=== PATIENT | male | born 1935 | race Caucasian/White ===

== ENCOUNTER 2017-08-28 16:41 | Inpatient (IN) | payer MEDICARE, OTHER ==
[~2017-08-28] VITALS: Ht 203.2 cm; Wt 150.0 kg
[2017-08-28 18:59] LABS: Hematocrit 36.8 % (41.0-53.0); Hemoglobin 12.1 g/dL (13.5-17.5); Mean Corpuscular Hemoglobin 28.8 pg (28.0-32.0); Mean Corpuscular Hgb Conc. 32.9 g/dL (32.0-36.0); Mean Corpuscular Volume 87.6 fL (80.0-100.0); Platelet Count (auto) 37 10^3/uL (140-450); Red Cell Distribution Width 16.4 % (11.8-14.3); White Blood Cell 27.1 10^3/uL (4.4-10.8)
[2017-08-28 19:09] LABS: Alanine Aminotransferase 77 U/L (16-61); Albumin 2.8 g/dL (3.4-5.0); Alkaline Phosphatase 142 U/L (45-117); Anion Gap 15 (5-15); Aspartate Aminotransferase 55 U/L (15-37); BUN/Creatinine Ratio 20.1; Bilirubin, Total 0.6 mg/dL (0.2-1.0); Blood Alcohol < 3.0 mg/dL (0-5); Blood Urea Nitrogen 28 mg/dL (7-18); Calcium 8.3 mg/dL (8.5-10.1); Carbon Dioxide 23 mmol/L (21-32); Chloride 97 mmol/L (98-107); GFR African American 63 mL/min; GFR Non-African American 52 mL/min; Glucose 196 mg/dL (74-106); Potassium 4.4 mmol/L (3.5-5.1); Sodium 135 mmol/L (136-145); Total Protein 7.1 g/dL (6.4-8.2)
[2017-08-28 19:22] LABS: Band Neutrophils % (manual) 15; Basophils % (manual) 0 (0.0-2.0); Blast Cells 0; Eosinophils % (manual) 0 (0-7); Lymphocytes % (manual) 3 (10.0-50.0); Metamyelocytes % 0; Monocytes % (manual) 2 (0-12); Myelocytes % 0; Promyelocytes % 0; Reactive Lymphocytes 0
[2017-08-28] MEDS ORDERED: METOPROLOL TARTRATE 1MG/1ML-5ML VIAL IV ONE ×2 (19:23→19:30)
[2017-08-28] MEDS ORDERED: cefTRIAXone 1GM/10ml IVPUSH 10 ML IV ONE (19:45)
[2017-08-28] MEDS ORDERED: metroNIDAZOLE 500MG/100ML 100 ML IV ONE (19:45)
[2017-08-28] MEDS ORDERED: ETOMIDATE (2MG/ML) 20ML VIAL IV ONE ×2 (19:45→22:30)
[2017-08-28] MEDS ORDERED: SUCCINYLCHOLINE CHLORIDE 20 MG/ML 10ML VIAL IV ONE (19:45)
[2017-08-28 20:45] VITALS: BP 171/121
[2017-08-28] MEDS: MIDAZOLAM DRIP 50 mg/50mL 50 ML IV SCH (20:45)
[2017-08-28 21:08] LABS: Lactic Acid w/Reflex 4.1 mmol/L (0.4-2.0)
[2017-08-28] MEDS ORDERED: PROPOFOL 100 ML IV ONE (21:15)
[2017-08-28] MEDS: PROPOFOL 100 ML IV SCH (21:15)
[2017-08-28] MEDS ORDERED: AMIODARONE HCL 150 MG in D5W 5% 100 ML IV ONE (22:00)
[2017-08-28] MEDS ORDERED: SODIUM CHLORIDE 0.9% 1,000 ML IV ONE (22:00)
[2017-08-28 22:33] VITALS: BP 87/39
[2017-08-28] MEDS: AMIODARONE HCL 900 MG in DEXTROSE 500 ML IV SCH (22:36)
[2017-08-28] MEDS ORDERED: VANCOMYCIN 1GM/250ML 250 ML IV ONE (22:45)
[2017-08-28] MEDS ORDERED: MORPHINE SULFATE 4 MG/ML SYR/VIAL IV PRN (22:45)
[2017-08-28] MEDS ORDERED: DEXTROSE (50%) 50ML SYRG IV PRN (22:45)
[2017-08-28] MEDS ORDERED: NITROGLYCERIN 0.4 MG SL TAB SL PRN (22:45)
[2017-08-28] MEDS ORDERED: ONDANSETRON HCL 4 MG/2 ML VIAL IV PRN (22:45)
[2017-08-28 23:10] LABS: Urine Bacteria FEW /hpf (None Seen); Urine Blood Negative /uL (Negative); Urine Mucus FEW (None Seen); Urine Specific Gravity 1.016 (1.001-1.035); Urine WBC 2 /hpf (0 - 3)
[2017-08-28] MEDS ORDERED: ENOXAPARIN SOD 120 MG/0.8 ML SYRINGE SC ONE (23:15)
[2017-08-29] VITALS (13 sets, daily range): BP systolic 60–127; BP diastolic 29–63
[2017-08-29] MEDS: NOREPINEPHRINE 8 MG/250ML KIT 250 ML IV SCH ×2 (00:23→23:46)
[2017-08-29] MEDS: ACCU-CHEK COMFORT CURVE STRIP VI SCH ×4 (00:46→18:20)
[2017-08-29] MEDS: InsuLIN REG 1unit/0.01ml Soln (100units/ml) SC SCH ×4 (00:52→18:29)
[2017-08-29] MEDS: SODIUM CHLORIDE 0.9% 1,000 ML IV SCH ×3 (00:53→23:47)
[2017-08-29] MEDS: PIPERACILLIN-TAZOB 3.375GM 100 ML IV SCH ×4 (01:22→18:51)
[2017-08-29] MEDS ORDERED: InsuLIN REG 1unit/0.01ml Soln (100units/ml) ONE (05:38)
[2017-08-29] MEDS: ACETAMINOPHEN 325 MG TAB PO PRN ×2 (05:55→20:19)
[2017-08-29 06:27] LABS: Albumin 2.2 g/dL (3.4-5.0); BUN/Creatinine Ratio 18.6; Calcium 7.9 mg/dL (8.5-10.1); Potassium 4.8 mmol/L (3.5-5.1)
[2017-08-29 06:30] LABS: Bilirubin, Total 1.1 mg/dL (0.2-1.0); Total Protein 6.2 g/dL (6.4-8.2)
[2017-08-29 07:36] LABS: Mean Corpuscular Hgb Conc. 31.7 g/dL (32.0-36.0); White Blood Cell 22.1 10^3/uL (4.4-10.8)
[2017-08-29 07:53] LABS: Hematocrit 35.5 % (41.0-53.0); Hemoglobin 11.2 g/dL (13.5-17.5); Mean Corpuscular Volume 91.4 fL (80.0-100.0); Platelet Count (auto) 173 10^3/uL (140-450); Red Blood Cells 3.88 10^6/uL (4.5-5.90); Red Cell Distribution Width 17.4 % (11.8-14.3)
[2017-08-29 08:05] LABS: Basophils % (manual) 0 (0.0-2.0); Blast Cells 0; Eosinophils % (manual) 0 (0-7); Metamyelocytes % 0; Myelocytes % 0; Promyelocytes % 0; Reactive Lymphocytes 0
[2017-08-29] MEDS: PHENYLEPHRINE INJ 20 MG in SODIUM CHL 0.9% 250 ML IV SCH ×2 (09:40→16:53)
[2017-08-29] MEDS ORDERED: VANCOMYCIN PER PHARMACY 0 MG IV SCH (10:00)
[2017-08-29] MEDS: ASPirin 81 mg TAB PO SCH (11:05)
[2017-08-29] MEDS: ENOXAPARIN SOD 40 MG/0.4 ML SYRINGE SC SCH (11:05)
[2017-08-29] MEDS: PANTOPRAZOLE 40 MG/10 ML VIAL IV SCH (11:05)
[2017-08-29 11:49] LABS: Band Neutrophils % (manual) 17; Lymphocytes % (manual) 3 (10.0-50.0); Monocytes % (manual) 6 (0-12)
[2017-08-29] MEDS: MIDAZOLAM DRIP 50 mg/50mL 50 ML IV SCH ×2 (19:41→23:00)
[2017-08-29] MEDS: PROPOFOL 100 ML IV SCH (22:25)
[2017-08-29] MEDS: AMIODARONE HCL 900 MG in DEXTROSE 500 ML IV SCH (23:00)
[2017-08-29] MEDS ORDERED: VANCOMYCIN 1GM/250ML 250 ML IV SCH (23:00)
[2017-08-29] MEDS ORDERED: AMIODARONE HCL 900 MG IV ONE (23:11)
[2017-08-30] VITALS (79 sets, daily range): BP systolic 84–166; BP diastolic 36–87
[2017-08-30] MEDS: ACCU-CHEK COMFORT CURVE STRIP VI SCH ×4 (00:10→17:53)
[2017-08-30] MEDS: InsuLIN REG 1unit/0.01ml Soln (100units/ml) SC SCH ×4 (00:10→17:53)
[2017-08-30] MEDS: PIPERACILLIN-TAZOB 3.375GM 100 ML IV SCH ×2 (00:10→05:46)
[2017-08-30] MEDS: PHENYLEPHRINE INJ 20 MG in SODIUM CHL 0.9% 250 ML IV SCH ×4 (03:30→17:53)
[2017-08-30] MEDS ORDERED: AMIODARONE HCL (50 MG/ ML) 3 ML VIAL IV ONE (03:34)
[2017-08-30] MEDS ORDERED: AMIODARONE HCL 75 MG in D5W 5% 100 ML IV ONE (03:45)
[2017-08-30] MEDS ORDERED: AMIODARONE HCL 900 MG in DEXTROSE 500 ML IV SCH (03:50)
[2017-08-30] MEDS: PROPOFOL 100 ML IV SCH (03:59)
[2017-08-30] MEDS: NOREPINEPHRINE 8 MG/250ML KIT 250 ML IV SCH ×3 (03:59→23:39)
[2017-08-30] MEDS: ACETAMINOPHEN 325 MG TAB PO PRN (04:00)
[2017-08-30 04:21] LABS: Basophils # (auto) 0 uL; Basophils % (auto) 0.2 % (0.0-2.0); Eosinophils # (auto) 0 uL; Eosinophils % (auto) 0.1 % (0.0-7.0); Hematocrit 34.4 % (41.0-53.0); Hemoglobin 11.1 g/dL (13.5-17.5); Lymphocytes # (auto) 0.4 uL; Lymphocytes % (auto) 2.1 % (10.0-50.0); Mean Corpuscular Hemoglobin 28.6 pg (28.0-32.0); Mean Corpuscular Hgb Conc. 32.1 g/dL (32.0-36.0); Monocytes % (auto) 5.8 % (0.0-12.0); Neutrophils # (auto) 16.7 uL; Neutrophils % (auto) 91.8 % (37.0-80.0); Platelet Count (auto) 160 10^3/uL (140-450); Red Blood Cells 3.87 10^6/uL (4.5-5.90); Red Cell Distribution Width 16.7 % (11.8-14.3); White Blood Cell 18.2 10^3/uL (4.4-10.8)
[2017-08-30 04:34] LABS: Albumin 1.7 g/dL (3.4-5.0); BUN/Creatinine Ratio 15.9; Calcium 7.1 mg/dL (8.5-10.1); Potassium 5.1 mmol/L (3.5-5.1)
[2017-08-30 04:36] LABS: Bilirubin, Total 2.1 mg/dL (0.2-1.0); Total Protein 5.6 g/dL (6.4-8.2)
[2017-08-30 05:00] LABS: INR 1.71 (0.9-1.15); Partial Thromboplastin Time 38.5 sec (22.64-33.71); Prothrombin Time 18.7 sec (9.37-12.3)
[2017-08-30] MEDS: PANTOPRAZOLE 40 MG/10 ML VIAL IV SCH (10:22)
[2017-08-30] MEDS: ASPirin 81 mg TAB PO SCH (10:22)
[2017-08-30] MEDS: ENOXAPARIN SOD 40 MG/0.4 ML SYRINGE SC SCH (10:23)
[2017-08-30] MEDS ORDERED: LACTULOSE 20Gm/30ML SOLN NG ONE (10:30)
[2017-08-30] MEDS: SODIUM CHLORIDE 0.9% 1,000 ML IV SCH ×2 (10:42→18:30)
[2017-08-30] MEDS ORDERED: CEFTRIAXONE SODIUM 2 GM in D5W 5% 50 ML IV ONE (12:15)
[2017-08-30] MEDS: MIDAZOLAM DRIP 50 mg/50mL 50 ML IV SCH ×2 (12:41→19:48)
[2017-08-31] VITALS (100 sets, daily range): BP systolic 92–170; BP diastolic 39–79
[2017-08-31] MEDS: AMIODARONE HCL 900 MG in DEXTROSE 500 ML IV SCH ×2 (01:27→16:28)
[2017-08-31] MEDS: PHENYLEPHRINE INJ 20 MG in SODIUM CHL 0.9% 250 ML IV SCH ×3 (02:13→18:53)
[2017-08-31] MEDS: SODIUM CHLORIDE 0.9% 1,000 ML IV SCH ×2 (02:30→08:30)
[2017-08-31 04:27] LABS: Basophils # (auto) 0 uL; Basophils % (auto) 0.2 % (0.0-2.0); Eosinophils # (auto) 0.2 uL; Eosinophils % (auto) 0.9 % (0.0-7.0); Hematocrit 34.6 % (41.0-53.0); Hemoglobin 11.2 g/dL (13.5-17.5); Lymphocytes # (auto) 0.8 uL; Lymphocytes % (auto) 3.6 % (10.0-50.0); Mean Corpuscular Hemoglobin 28.8 pg (28.0-32.0); Mean Corpuscular Hgb Conc. 32.4 g/dL (32.0-36.0); Monocytes # (auto) 1.6 uL; Monocytes % (auto) 7.5 % (0.0-12.0); Neutrophils # (auto) 18.8 uL; Neutrophils % (auto) 87.8 % (37.0-80.0); Platelet Count (auto) 176 10^3/uL (140-450); Red Blood Cells 3.89 10^6/uL (4.5-5.90); White Blood Cell 21.4 10^3/uL (4.4-10.8)
[2017-08-31 04:39] LABS: Potassium 5.1 mmol/L (3.5-5.1)
[2017-08-31 04:43] LABS: Albumin 1.7 g/dL (3.4-5.0); BUN/Creatinine Ratio 14.8; Calcium 6.6 mg/dL (8.5-10.1)
[2017-08-31 04:45] LABS: Bilirubin, Total 1.9 mg/dL (0.2-1.0)
[2017-08-31] MEDS: PROPOFOL 100 ML IV SCH (05:37)
[2017-08-31] MEDS: MIDAZOLAM DRIP 50 mg/50mL 50 ML IV SCH (05:37)
[2017-08-31] MEDS: NOREPINEPHRINE 8 MG/250ML KIT 250 ML IV SCH ×3 (05:38→13:08)
[2017-08-31] MEDS: InsuLIN REG 1unit/0.01ml Soln (100units/ml) SC SCH ×4 (06:09→18:35)
[2017-08-31] MEDS: ACCU-CHEK COMFORT CURVE STRIP VI SCH ×4 (06:09→18:35)
[2017-08-31] MEDS: ASPirin 81 mg TAB PO SCH (10:23)
[2017-08-31] MEDS: ENOXAPARIN SOD 40 MG/0.4 ML SYRINGE SC SCH (10:23)
[2017-08-31] MEDS: PANTOPRAZOLE 40 MG/10 ML VIAL IV SCH (10:23)
[2017-08-31] MEDS: CEFTRIAXONE SODIUM 2 GM in D5W 5% 50 ML IV SCH (10:24)
[2017-08-31] MEDS: ALBUMIN 25% 100 ML IV SCH ×2 (12:55→20:00)
[2017-08-31] MEDS: FUROSEMIDE 40 MG/4 ML VIAL IV SCH ×2 (12:55→18:35)
[2017-08-31] MEDS: SODIUM BICARBONATE 50ML VIAL 50 ML in SOD CHL 0.45% 1,000 ML IV SCH ×2 (13:01→22:30)
[2017-08-31 14:43] LABS: Protein, Urine 107.1 mg/dL (0.0-11.9)
[2017-08-31 14:48] LABS: Urine Bacteria FEW /hpf (None Seen); Urine Blood 2+ /uL (Negative); Urine Specific Gravity 1.021 (1.001-1.035); Urine WBC 13 /hpf (0 - 3)
[2017-09-01] VITALS (104 sets, daily range): BP systolic 86–127; BP diastolic 26–71
[2017-09-01] MEDS: NOREPINEPHRINE 8 MG/250ML KIT 250 ML IV SCH
[2017-09-01] MEDS: InsuLIN REG 1unit/0.01ml Soln (100units/ml) SC SCH ×4 (00:20→18:24)
[2017-09-01] MEDS: PHENYLEPHRINE INJ 20 MG in SODIUM CHL 0.9% 250 ML IV SCH ×3 (03:13→17:58)
[2017-09-01] MEDS: ALBUMIN 25% 100 ML IV SCH ×3 (03:59→16:50)
[2017-09-01 04:37] LABS: Basophils # (auto) 0 uL; Basophils % (auto) 0.1 % (0.0-2.0); Eosinophils # (auto) 0.1 uL; Eosinophils % (auto) 0.8 % (0.0-7.0); Hematocrit 28.9 % (41.0-53.0); Hemoglobin 9.6 g/dL (13.5-17.5); Lymphocytes % (auto) 5.2 % (10.0-50.0); Mean Corpuscular Hemoglobin 29.4 pg (28.0-32.0); Mean Corpuscular Hgb Conc. 33.3 g/dL (32.0-36.0); Mean Corpuscular Volume 88.2 fL (80.0-100.0); Monocytes # (auto) 1.7 uL; Neutrophils # (auto) 15.7 uL; Neutrophils % (auto) 84.9 % (37.0-80.0); Platelet Count (auto) 131 10^3/uL (140-450); Red Blood Cells 3.28 10^6/uL (4.5-5.90); Red Cell Distribution Width 16.8 % (11.8-14.3); White Blood Cell 18.5 10^3/uL (4.4-10.8)
[2017-09-01 04:49] LABS: Albumin 2.2 g/dL (3.4-5.0); BUN/Creatinine Ratio 15.1; Bilirubin, Total 2.4 mg/dL (0.2-1.0); Calcium 6.3 mg/dL (8.5-10.1); Potassium 4.7 mmol/L (3.5-5.1); Total Protein 5.6 g/dL (6.4-8.2)
[2017-09-01] MEDS ORDERED: POTASSIUM CHL 10% (20 MEQ/15ML) 15ml ORAL SOLN GT ONE (05:45)
[2017-09-01] MEDS ORDERED: MAGNESIUM SULFATE 1GM/100ML 100 ML IV ONE (05:45)
[2017-09-01] MEDS: ACCU-CHEK COMFORT CURVE STRIP VI SCH ×4 (06:00→18:24)
[2017-09-01] MEDS: FUROSEMIDE 40 MG/4 ML VIAL IV SCH (06:00)
[2017-09-01] MEDS: AMIODARONE HCL 900 MG in DEXTROSE 500 ML IV SCH ×2 (07:29→22:30)
[2017-09-01] MEDS: SODIUM BICARBONATE 50ML VIAL 50 ML in SOD CHL 0.45% 1,000 ML IV SCH ×2 (09:00→18:25)
[2017-09-01] MEDS ORDERED: cefTRIAXone 1GM/10ml IVPUSH 0 ML IV ONE (10:05)
[2017-09-01] MEDS: CEFTRIAXONE SODIUM 2 GM in D5W 5% 50 ML IV SCH (10:14)
[2017-09-01] MEDS: PANTOPRAZOLE 40 MG/10 ML VIAL IV SCH (10:14)
[2017-09-01] MEDS: ENOXAPARIN SOD 30 MG/0.3 ML SYRINGE SC SCH (10:14)
[2017-09-01] MEDS: ASPirin 81 mg TAB PO SCH (10:15)
[2017-09-01] MEDS: FUROSEMIDE INJECTION 250 MG in D5W 5% 225 ML IV SCH (11:45)
[2017-09-01] MEDS ORDERED: DOPamine 1600MCG/ML D5W 250 ML IV ONE (17:45)
[2017-09-01] MEDS ORDERED: DOPamine 1600MCG/ML D5W 250 ML IV SCH (17:55)
[2017-09-01] MEDS ORDERED: SODIUM BICARBONATE 8.4 % INJ 50ML VIAL IV ONE (18:06)
[2017-09-01] MEDS: MIDAZOLAM DRIP 50 mg/50mL 50 ML IV SCH (18:25)
[2017-09-01] MEDS: PROPOFOL 100 ML IV SCH (22:25)
[2017-09-02] VITALS (106 sets, daily range): BP systolic 81–130; BP diastolic 29–60
[2017-09-02] MEDS: ALBUMIN 25% 100 ML IV SCH (00:20)
[2017-09-02] MEDS: InsuLIN REG 1unit/0.01ml Soln (100units/ml) SC SCH ×4 (00:20→17:59)
[2017-09-02] MEDS: ACCU-CHEK COMFORT CURVE STRIP VI SCH ×4 (00:21→17:57)
[2017-09-02] MEDS: PHENYLEPHRINE INJ 20 MG in SODIUM CHL 0.9% 250 ML IV SCH ×3 (00:35→17:16)
[2017-09-02 04:25] LABS: Basophils # (auto) 0 uL; Basophils % (auto) 0.2 % (0.0-2.0); Eosinophils # (auto) 0 uL; Eosinophils % (auto) 0.2 % (0.0-7.0); Hematocrit 27.5 % (41.0-53.0); Hemoglobin 9.3 g/dL (13.5-17.5); Lymphocytes # (auto) 0.8 uL; Lymphocytes % (auto) 4.8 % (10.0-50.0); Mean Corpuscular Hemoglobin 29.2 pg (28.0-32.0); Mean Corpuscular Hgb Conc. 33.7 g/dL (32.0-36.0); Mean Corpuscular Volume 86.9 fL (80.0-100.0); Monocytes # (auto) 1.3 uL; Monocytes % (auto) 7.8 % (0.0-12.0); Neutrophils # (auto) 14.4 uL; Platelet Count (auto) 97 10^3/uL (140-450); Red Blood Cells 3.17 10^6/uL (4.5-5.90); Red Cell Distribution Width 16.6 % (11.8-14.3); White Blood Cell 16.5 10^3/uL (4.4-10.8)
[2017-09-02 04:38] LABS: Albumin 3.2 g/dL (3.4-5.0); BUN/Creatinine Ratio 15.6; Bilirubin, Total 3.3 mg/dL (0.2-1.0); Calcium 6.7 mg/dL (8.5-10.1); Potassium 4.4 mmol/L (3.5-5.1); Total Protein 6.4 g/dL (6.4-8.2)
[2017-09-02 08:34] LABS: Folate (Folic Acid) 17.62 ng/mL (5.38-24)
[2017-09-02] MEDS: SODIUM BICARBONATE 50ML VIAL 50 ML in SOD CHL 0.45% 1,000 ML IV SCH ×2 (08:45→18:51)
[2017-09-02] MEDS ORDERED: LEVOFLOXACIN 500MG 100 ML IV ONE (09:30)
[2017-09-02] MEDS: ENOXAPARIN SOD 30 MG/0.3 ML SYRINGE SC SCH (09:41)
[2017-09-02] MEDS: ASPirin 81 mg TAB PO SCH (09:41)
[2017-09-02] MEDS: PANTOPRAZOLE 40 MG/10 ML VIAL IV SCH (09:41)
[2017-09-02] MEDS: AMIODARONE HCL 900 MG in DEXTROSE 500 ML IV SCH (11:37)
[2017-09-02] MEDS: METOLAZONE 5 MG TAB NG SCH (11:41)
[2017-09-02] MEDS: METOCLOPRAMIDE HCL 5MG/ml INJ 2ml VIAL IV SCH ×2 (11:41→22:18)
[2017-09-02] MEDS: FUROSEMIDE INJECTION 250 MG in D5W 5% 225 ML IV SCH (11:55)
[2017-09-02] MEDS: CALCIUM ACETATE 667 MG CAP NG SCH ×2 (13:58→22:18)
[2017-09-02] MEDS: MIDAZOLAM DRIP 50 mg/50mL 50 ML IV SCH (18:51)
[2017-09-03] VITALS (106 sets, daily range): BP systolic 85–169; BP diastolic 20–62
[2017-09-03] MEDS: NOREPINEPHRINE 8 MG/250ML KIT 250 ML IV SCH ×2 (00:34→23:03)
[2017-09-03] MEDS: ACCU-CHEK COMFORT CURVE STRIP VI SCH ×4 (01:00→18:00)
[2017-09-03] MEDS: InsuLIN REG 1unit/0.01ml Soln (100units/ml) SC SCH ×4 (01:00→18:40)
[2017-09-03 03:54] LABS: Hematocrit 27.9 % (41.0-53.0); Hemoglobin 9.4 g/dL (13.5-17.5); Mean Corpuscular Hemoglobin 29.3 pg (28.0-32.0); Mean Corpuscular Hgb Conc. 33.8 g/dL (32.0-36.0); Mean Corpuscular Volume 86.9 fL (80.0-100.0); Platelet Count (auto) 111 10^3/uL (140-450); Red Blood Cells 3.21 10^6/uL (4.5-5.90); Red Cell Distribution Width 17.3 % (11.8-14.3); White Blood Cell 15.5 10^3/uL (4.4-10.8)
[2017-09-03 04:09] LABS: Basophils % (manual) 0 (0.0-2.0); Blast Cells 0; Eosinophils % (manual) 0 (0-7); Metamyelocytes % 0; Myelocytes % 0; Promyelocytes % 0; Reactive Lymphocytes 0
[2017-09-03 04:10] LABS: Albumin 2.6 g/dL (3.4-5.0); BUN/Creatinine Ratio 15.9; Calcium 6.5 mg/dL (8.5-10.1); Potassium 4.7 mmol/L (3.5-5.1)
[2017-09-03 04:13] LABS: Bilirubin, Total 3.9 mg/dL (0.2-1.0); Total Protein 5.9 g/dL (6.4-8.2)
[2017-09-03 04:34] LABS: Band Neutrophils % (manual) 1; Lymphocytes % (manual) 7 (10.0-50.0); Monocytes % (manual) 5 (0-12)
[2017-09-03] MEDS: SODIUM BICARBONATE 50ML VIAL 50 ML in SOD CHL 0.45% 1,000 ML IV SCH (05:17)
[2017-09-03] MEDS: METOCLOPRAMIDE HCL 5MG/ml INJ 2ml VIAL IV SCH ×3 (07:38→22:59)
[2017-09-03] MEDS: PHENYLEPHRINE INJ 20 MG in SODIUM CHL 0.9% 250 ML IV SCH ×3 (07:42→19:58)
[2017-09-03] MEDS: PROPOFOL 100 ML IV SCH ×2 (07:42→22:25)
[2017-09-03] MEDS: AMIODARONE HCL 900 MG in DEXTROSE 500 ML IV SCH ×2 (07:42→19:33)
[2017-09-03] MEDS: CALCIUM ACETATE 667 MG CAP NG SCH ×3 (07:45→22:59)
[2017-09-03] MEDS ORDERED: LEVOFLOXACIN 500MG 100 ML IV ONE (08:00)
[2017-09-03] MEDS: PANTOPRAZOLE 40 MG/10 ML VIAL IV SCH (10:03)
[2017-09-03] MEDS: ASPirin 81 mg TAB PO SCH (10:03)
[2017-09-03] MEDS: ENOXAPARIN SOD 30 MG/0.3 ML SYRINGE SC SCH (10:03)
[2017-09-03] MEDS: METOLAZONE 5 MG TAB NG SCH (10:06)
[2017-09-03] MEDS ORDERED: DOPamine 1600MCG/ML D5W 250 ML IV SCH (11:30)
[2017-09-03] MEDS: SODIUM BICARBONATE 50ML VIAL 100 ML in SOD CHL 0.45% 1,000 ML IV SCH ×2 (12:37→22:30)
[2017-09-03] MEDS: FUROSEMIDE INJECTION 250 MG in D5W 5% 225 ML IV SCH (14:00)
[2017-09-03] MEDS ORDERED: AMIODARONE HCL 150 MG in D5W 5% 100 ML IV ONE (19:45)
[2017-09-03] MEDS: MIDAZOLAM DRIP 50 mg/50mL 50 ML IV SCH (19:48)
[2017-09-03] MEDS: AMIODARONE HCL 200 MG TAB PO SCH (23:00)
[2017-09-04] VITALS (105 sets, daily range): BP systolic 81–139; BP diastolic 37–68
[2017-09-04] MEDS: PHENYLEPHRINE INJ 20 MG in SODIUM CHL 0.9% 250 ML IV SCH ×3 (04:18→20:58)
[2017-09-04 04:26] LABS: Albumin 2.2 g/dL (3.4-5.0); BUN/Creatinine Ratio 16.4; Bilirubin, Total 4.6 mg/dL (0.2-1.0); Calcium 6.9 mg/dL (8.5-10.1); Potassium 4.1 mmol/L (3.5-5.1); Total Protein 5.6 g/dL (6.4-8.2)
[2017-09-04] MEDS: ACCU-CHEK COMFORT CURVE STRIP VI SCH ×4 (06:02→18:05)
[2017-09-04] MEDS: InsuLIN REG 1unit/0.01ml Soln (100units/ml) SC SCH ×4 (06:02→18:05)
[2017-09-04] MEDS: SODIUM BICARBONATE 50ML VIAL 100 ML in SOD CHL 0.45% 1,000 ML IV SCH ×3 (06:02→20:55)
[2017-09-04] MEDS: FUROSEMIDE INJECTION 250 MG in D5W 5% 225 ML IV SCH (06:03)
[2017-09-04] MEDS: CALCIUM ACETATE 667 MG CAP NG SCH ×3 (06:15→21:55)
[2017-09-04] MEDS: METOCLOPRAMIDE HCL 5MG/ml INJ 2ml VIAL IV SCH ×3 (06:15→21:55)
[2017-09-04] MEDS: PANTOPRAZOLE 40 MG/10 ML VIAL IV SCH (10:04)
[2017-09-04] MEDS: METOLAZONE 5 MG TAB NG SCH (10:06)
[2017-09-04] MEDS: ENOXAPARIN SOD 30 MG/0.3 ML SYRINGE SC SCH (10:07)
[2017-09-04] MEDS: AMIODARONE HCL 200 MG TAB PO SCH ×2 (10:07→21:55)
[2017-09-04] MEDS: ASPirin 81 mg TAB PO SCH (10:07)
[2017-09-04] MEDS: AMIODARONE HCL 900 MG in DEXTROSE 500 ML IV SCH (10:34)
[2017-09-04] MEDS: MIDAZOLAM DRIP 50 mg/50mL 50 ML IV SCH (19:48)
[2017-09-04] MEDS: PROPOFOL 100 ML IV SCH (22:25)
[2017-09-05] VITALS (104 sets, daily range): BP systolic 77–137; BP diastolic 31–77
[2017-09-05] MEDS: AMIODARONE HCL 900 MG in DEXTROSE 500 ML IV SCH ×2 (01:35→16:36)
[2017-09-05 04:22] LABS: Calcium 7.4 mg/dL (8.5-10.1); Potassium 4.1 mmol/L (3.5-5.1)
[2017-09-05 04:24] LABS: BUN/Creatinine Ratio 17.7
[2017-09-05 04:26] LABS: Bilirubin, Total 3.7 mg/dL (0.2-1.0); Total Protein 5.8 g/dL (6.4-8.2)
[2017-09-05] MEDS: PHENYLEPHRINE INJ 20 MG in SODIUM CHL 0.9% 250 ML IV SCH ×3 (05:18→21:58)
[2017-09-05] MEDS ORDERED: FUROSEMIDE ONE (05:23)
[2017-09-05] MEDS: CALCIUM ACETATE 667 MG CAP NG SCH ×3 (05:37→22:08)
[2017-09-05] MEDS: FUROSEMIDE INJECTION 250 MG in D5W 5% 225 ML IV SCH (05:37)
[2017-09-05] MEDS: METOCLOPRAMIDE HCL 5MG/ml INJ 2ml VIAL IV SCH ×3 (05:37→22:08)
[2017-09-05] MEDS: InsuLIN REG 1unit/0.01ml Soln (100units/ml) SC SCH ×4 (06:01→17:53)
[2017-09-05] MEDS: ACCU-CHEK COMFORT CURVE STRIP VI SCH ×4 (06:01→17:53)
[2017-09-05] MEDS: NOREPINEPHRINE 8 MG/250ML KIT 250 ML IV SCH ×2 (06:13→23:30)
[2017-09-05] MEDS: LEVOFLOXACIN 250MG 50 ML IV SCH (10:22)
[2017-09-05] MEDS: PANTOPRAZOLE 40 MG/10 ML VIAL IV SCH (10:22)
[2017-09-05] MEDS: METOLAZONE 5 MG TAB NG SCH (10:23)
[2017-09-05] MEDS: AMIODARONE HCL 200 MG TAB PO SCH ×2 (10:23→22:09)
[2017-09-05] MEDS: ASPirin 81 mg TAB PO SCH (10:23)
[2017-09-05] MEDS: ENOXAPARIN SOD 30 MG/0.3 ML SYRINGE SC SCH (10:24)
[2017-09-05] MEDS: LINEZOLID 600MG/300ML 300 ML IV SCH ×2 (11:35→22:08)
[2017-09-05] MEDS: SODIUM BICARBONATE 50ML VIAL 100 ML in SOD CHL 0.45% 1,000 ML IV SCH (13:53)
[2017-09-05] MEDS: OCTREOTIDE ACETATE 100 MCG/ML VL SUBCUT SCH ×2 (14:39→22:10)
[2017-09-05] MEDS: MIDAZOLAM DRIP 50 mg/50mL 50 ML IV SCH (19:48)
[2017-09-05] MEDS: Diabetisource AC 1 Liter GT SCH (20:00)
[2017-09-05] MEDS: ALBUMIN 25% 100 ML IV SCH (22:08)
[2017-09-05] MEDS: PROPOFOL 100 ML IV SCH (22:25)
[2017-09-06] VITALS (89 sets, daily range): BP systolic 82–133; BP diastolic 29–87
[2017-09-06] MEDS: ACCU-CHEK COMFORT CURVE STRIP VI SCH ×4 (00:21→18:00)
[2017-09-06] MEDS: InsuLIN REG 1unit/0.01ml Soln (100units/ml) SC SCH ×4 (00:23→18:01)
[2017-09-06] MEDS: NOREPINEPHRINE 8 MG/250ML KIT 250 ML IV SCH (01:50)
[2017-09-06 04:11] LABS: Hematocrit 27.6 % (41.0-53.0); Hemoglobin 9.3 g/dL (13.5-17.5); Mean Corpuscular Hemoglobin 28.7 pg (28.0-32.0); Mean Corpuscular Hgb Conc. 33.7 g/dL (32.0-36.0); Mean Corpuscular Volume 85.3 fL (80.0-100.0); Platelet Count (auto) 234 10^3/uL (140-450); Red Blood Cells 3.23 10^6/uL (4.5-5.90); White Blood Cell 16.7 10^3/uL (4.4-10.8)
[2017-09-06 04:13] LABS: Calcium 7.7 mg/dL (8.5-10.1); Potassium 3.5 mmol/L (3.5-5.1)
[2017-09-06 04:19] LABS: Albumin 2.2 g/dL (3.4-5.0); Total Protein 5.8 g/dL (6.4-8.2)
[2017-09-06 04:24] LABS: BUN/Creatinine Ratio 19.2
[2017-09-06 04:27] LABS: Basophils % (manual) 0 (0.0-2.0); Blast Cells 0; Eosinophils % (manual) 0 (0-7); Promyelocytes % 0; Reactive Lymphocytes 0
[2017-09-06 04:57] LABS: Band Neutrophils % (manual) 5; Lymphocytes % (manual) 11 (10.0-50.0); Metamyelocytes % 5; Monocytes % (manual) 11 (0-12); Myelocytes % 2
[2017-09-06] MEDS: SODIUM BICARBONATE 50ML VIAL 100 ML in SOD CHL 0.45% 1,000 ML IV SCH ×2 (05:03→13:21)
[2017-09-06] MEDS: PHENYLEPHRINE INJ 20 MG in SODIUM CHL 0.9% 250 ML IV SCH ×2 (06:18→15:52)
[2017-09-06] MEDS: METOCLOPRAMIDE HCL 5MG/ml INJ 2ml VIAL IV SCH ×3 (06:40→21:30)
[2017-09-06] MEDS: CALCIUM ACETATE 667 MG CAP NG SCH ×3 (06:40→21:30)
[2017-09-06] MEDS: FUROSEMIDE INJECTION 250 MG in D5W 5% 225 ML IV SCH (06:46)
[2017-09-06] MEDS: OCTREOTIDE ACETATE 100 MCG/ML VL SUBCUT SCH ×3 (06:59→21:31)
[2017-09-06] MEDS: AMIODARONE HCL 900 MG in DEXTROSE 500 ML IV SCH (10:35)
[2017-09-06] MEDS: AMIODARONE HCL 200 MG TAB PO SCH ×2 (10:45→21:30)
[2017-09-06] MEDS: ALBUMIN 25% 100 ML IV SCH ×2 (10:45→21:28)
[2017-09-06] MEDS: PANTOPRAZOLE 40 MG/10 ML VIAL IV SCH (10:45)
[2017-09-06] MEDS: ENOXAPARIN SOD 30 MG/0.3 ML SYRINGE SC SCH (10:45)
[2017-09-06] MEDS: METOLAZONE 5 MG TAB NG SCH (10:46)
[2017-09-06] MEDS: ASPirin 81 mg TAB PO SCH (10:46)
[2017-09-06] MEDS: LINEZOLID 600MG/300ML 300 ML IV SCH ×2 (12:36→21:30)
[2017-09-06 13:12] LABS: Creatinine, Urine 23 mg/dL (30.0-125.0); Sodium Urine 58 mmol/L (40-220)
[2017-09-06] MEDS: Diabetisource AC 1 Liter GT SCH (20:20)
[2017-09-07] VITALS (104 sets, daily range): BP systolic 76–155; BP diastolic 30–104
[2017-09-07] MEDS: ACCU-CHEK COMFORT CURVE STRIP VI SCH ×4 (00:06→18:16)
[2017-09-07] MEDS: InsuLIN REG 1unit/0.01ml Soln (100units/ml) SC SCH ×4 (00:06→18:17)
[2017-09-07] MEDS ORDERED: FUROSEMIDE INJECTION 10 ML ONE (02:46)
[2017-09-07 04:01] LABS: Hematocrit 27.8 % (41.0-53.0); Hemoglobin 9.5 g/dL (13.5-17.5); Mean Corpuscular Hemoglobin 29.3 pg (28.0-32.0); Mean Corpuscular Hgb Conc. 34.3 g/dL (32.0-36.0); Mean Corpuscular Volume 85.5 fL (80.0-100.0); Platelet Count (auto) 283 10^3/uL (140-450); Red Blood Cells 3.25 10^6/uL (4.5-5.90); Red Cell Distribution Width 17.2 % (11.8-14.3); White Blood Cell 14.9 10^3/uL (4.4-10.8)
[2017-09-07 04:05] LABS: Basophils % (manual) 0 (0.0-2.0); Blast Cells 0; Myelocytes % 0; Promyelocytes % 0
[2017-09-07 04:18] LABS: Albumin 2.7 g/dL (3.4-5.0); BUN/Creatinine Ratio 19.9; Bilirubin, Total 2.8 mg/dL (0.2-1.0); Calcium 7.7 mg/dL (8.5-10.1); Potassium 3.1 mmol/L (3.5-5.1); Total Protein 6.2 g/dL (6.4-8.2)
[2017-09-07 04:34] LABS: Band Neutrophils % (manual) 5; Eosinophils % (manual) 2 (0-7); Lymphocytes % (manual) 10 (10.0-50.0); Metamyelocytes % 4; Monocytes % (manual) 4 (0-12); Reactive Lymphocytes 1
[2017-09-07] MEDS: CALCIUM ACETATE 667 MG CAP NG SCH ×3 (05:42→21:53)
[2017-09-07] MEDS: METOCLOPRAMIDE HCL 5MG/ml INJ 2ml VIAL IV SCH ×3 (05:42→21:53)
[2017-09-07] MEDS: OCTREOTIDE ACETATE 100 MCG/ML VL SUBCUT SCH ×3 (05:42→21:54)
[2017-09-07] MEDS: NOREPINEPHRINE 8 MG/250ML KIT 250 ML IV SCH ×2 (05:43→22:53)
[2017-09-07] MEDS: FUROSEMIDE INJECTION 250 MG in D5W 5% 225 ML IV SCH ×2 (05:54→18:16)
[2017-09-07] MEDS ORDERED: POTASSIUM CHL 10% (20 MEQ/15ML) 15ml ORAL SOLN GT ONE (06:15)
[2017-09-07] MEDS: PHENYLEPHRINE INJ 20 MG in SODIUM CHL 0.9% 250 ML IV SCH ×4 (07:18→23:58)
[2017-09-07] MEDS: PROPOFOL 100 ML IV SCH ×2 (07:46→22:25)
[2017-09-07] MEDS: AMIODARONE HCL 900 MG in DEXTROSE 500 ML IV SCH ×2 (07:46→13:39)
[2017-09-07] MEDS: MIDAZOLAM DRIP 50 mg/50mL 50 ML IV SCH ×2 (08:28→19:48)
[2017-09-07] MEDS: LEVOFLOXACIN 250MG 50 ML IV SCH (08:36)
[2017-09-07] MEDS: ENOXAPARIN SOD 30 MG/0.3 ML SYRINGE SC SCH (10:43)
[2017-09-07] MEDS: ASPirin 81 mg TAB PO SCH (10:46)
[2017-09-07] MEDS: AMIODARONE HCL 200 MG TAB PO SCH ×2 (10:46→21:53)
[2017-09-07] MEDS: METOLAZONE 5 MG TAB NG SCH (10:47)
[2017-09-07] MEDS: PANTOPRAZOLE 40 MG/10 ML VIAL IV SCH (10:47)
[2017-09-07] MEDS: LINEZOLID 600MG/300ML 300 ML IV SCH ×2 (10:48→21:54)
[2017-09-07] MEDS: SODIUM BICARBONATE 50ML VIAL 100 ML in SOD CHL 0.45% 1,000 ML IV SCH (12:46)
[2017-09-07] MEDS: SPIRONOLACTONE 25 MG TAB PO SCH (18:16)
[2017-09-07] MEDS: Diabetisource AC 1 Liter GT SCH (22:53)
[2017-09-08] VITALS (94 sets, daily range): BP systolic 76–127; BP diastolic 29–75
[2017-09-08] MEDS: ACCU-CHEK COMFORT CURVE STRIP VI SCH ×2 (00:06→05:43)
[2017-09-08] MEDS: InsuLIN REG 1unit/0.01ml Soln (100units/ml) SC SCH ×2 (00:06→05:58)
[2017-09-08 04:10] LABS: Hematocrit 27.4 % (41.0-53.0); Hemoglobin 9.2 g/dL (13.5-17.5); Mean Corpuscular Hemoglobin 28.9 pg (28.0-32.0); Mean Corpuscular Hgb Conc. 33.5 g/dL (32.0-36.0); Mean Corpuscular Volume 86.2 fL (80.0-100.0); Platelet Count (auto) 261 10^3/uL (140-450); Red Blood Cells 3.18 10^6/uL (4.5-5.90); Red Cell Distribution Width 17.7 % (11.8-14.3); White Blood Cell 14.2 10^3/uL (4.4-10.8)
[2017-09-08 04:12] LABS: Basophils % (manual) 0 (0.0-2.0); Blast Cells 0; Promyelocytes % 0; Reactive Lymphocytes 0
[2017-09-08 04:29] LABS: Albumin 2.1 g/dL (3.4-5.0); Calcium 7.8 mg/dL (8.5-10.1)
[2017-09-08 04:34] LABS: Bilirubin, Total 2.2 mg/dL (0.2-1.0); Total Protein 5.8 g/dL (6.4-8.2)
[2017-09-08 04:38] LABS: BUN/Creatinine Ratio 21.4
[2017-09-08] MEDS: AMIODARONE HCL 900 MG in DEXTROSE 500 ML IV SCH (04:40)
[2017-09-08] MEDS: FUROSEMIDE INJECTION 250 MG in D5W 5% 225 ML IV SCH (04:46)
[2017-09-08 04:53] LABS: Band Neutrophils % (manual) 2; Eosinophils % (manual) 2 (0-7); Lymphocytes % (manual) 11 (10.0-50.0); Metamyelocytes % 3; Monocytes % (manual) 4 (0-12); Myelocytes % 2
[2017-09-08] MEDS: METOCLOPRAMIDE HCL 5MG/ml INJ 2ml VIAL IV SCH (05:39)
[2017-09-08] MEDS: OCTREOTIDE ACETATE 100 MCG/ML VL SUBCUT SCH (05:39)
[2017-09-08] MEDS: CALCIUM ACETATE 667 MG CAP NG SCH (05:42)
[2017-09-08] MEDS: SPIRONOLACTONE 25 MG TAB PO SCH (05:43)
[2017-09-08] MEDS: PHENYLEPHRINE INJ 20 MG in SODIUM CHL 0.9% 250 ML IV SCH (09:36)
[2017-09-08] MEDS: AMIODARONE HCL 200 MG TAB PO SCH (10:16)
[2017-09-08] MEDS: PANTOPRAZOLE 40 MG/10 ML VIAL IV SCH (10:16)
[2017-09-08] MEDS: METOLAZONE 5 MG TAB NG SCH (10:16)
[2017-09-08] MEDS: ENOXAPARIN SOD 30 MG/0.3 ML SYRINGE SC SCH (10:16)
[2017-09-08] MEDS: LINEZOLID 600MG/300ML 300 ML IV SCH (10:17)
[2017-09-08] MEDS: ASPirin 81 mg TAB PO SCH (10:17)
[2017-09-08] MEDS: MORPHINE SULFATE 8mg/ml INJ SDV IV PRN ×3 (12:40→18:29)
[2017-09-08] MEDS: LORazepam 2MG/ML-1ML VIAL IV PRN ×2 (14:14→17:08)
[2017-09-09 00:15] VITALS: BP 111/57
[2017-09-09] MEDS: LORazepam 2MG/ML-1ML VIAL IV PRN (01:18)
[2017-09-09 05:44] VITALS: BP 90/47
[2017-09-09 07:15] LABS: Basophils # (auto) 0 uL; Basophils % (auto) 0.2 % (0.0-2.0); Eosinophils # (auto) 0 uL; Eosinophils % (auto) 0.1 % (0.0-7.0); Hemoglobin 9.4 g/dL (13.5-17.5); Lymphocytes # (auto) 0.9 uL; Lymphocytes % (auto) 4.3 % (10.0-50.0); Mean Corpuscular Hemoglobin 29.5 pg (28.0-32.0); Mean Corpuscular Hgb Conc. 33.4 g/dL (32.0-36.0); Mean Corpuscular Volume 88.2 fL (80.0-100.0); Monocytes # (auto) 1.5 uL; Neutrophils # (auto) 18.4 uL; Neutrophils % (auto) 88.4 % (37.0-80.0); Nucleated Red Blood Cells % 0.1 %; Platelet Count (auto) 235 10^3/uL (140-450); Red Blood Cells 3.17 10^6/uL (4.5-5.90); Red Cell Distribution Width 18.2 % (11.8-14.3); White Blood Cell 20.8 10^3/uL (4.4-10.8)
[2017-09-09 08:00] VITALS: BP 117/63
[2017-09-09 08:03] LABS: Albumin 2.2 g/dL (3.4-5.0); BUN/Creatinine Ratio 21.9; Bilirubin, Total 2.4 mg/dL (0.2-1.0); Calcium 7.6 mg/dL (8.5-10.1)
[2017-09-09 12:00] VITALS: BP 102/57
[2017-09-09 17:00] VITALS: BP 110/60
[2017-09-09 22:02] VITALS: BP 120/64
[2017-09-10 05:36] VITALS: BP 125/57
[2017-09-10 09:00] VITALS: BP 112/52
[2017-09-10] MEDS: LORazepam 2MG/ML-1ML VIAL IV PRN (11:58)
[2017-09-10 13:00] VITALS: BP 120/49
[2017-09-10 16:59] VITALS: BP 123/44
== END 2017-09-10 21:03 | disposition hospice, inpatient (51) | DRG 870 ==
LOC: ER 16:41 → TELE 16:42 → ICU WEST 08-29 22:32 → CENTRAL 09-08 23:53
PROVIDERS: ADMIT Nurse Practitioner; ATTEND Family Medicine
PROC: 5A1955Z Respiratory Ventilation, Greater than 96 Consecutive Hours (ICD-10-PCS; principal; 2017-08-28)
PROC: 0BH17EZ Insertion of Endotracheal Airway into Trachea, Via Natural or Artificial Opening (ICD-10-PCS; 2017-08-28)
PROC: 02HV33Z Insertion of Infusion Device into Superior Vena Cava, Percutaneous Approach (ICD-10-PCS; 2017-08-28)
DX: A40.9 Streptococcal sepsis, unspecified (principal); I21.4 Non-ST elevation (NSTEMI) myocardial infarction; E43 Unspecified severe protein-calorie malnutrition; J96.01 Acute respiratory failure with hypoxia; K72.00 Acute and subacute hepatic failure without coma; N17.0 Acute kidney failure with tubular necrosis; R65.21 Severe sepsis with septic shock; G30.9 Alzheimer's disease, unspecified; F02.80 Dementia in other diseases classified elsewhere, unspecified severity, without behavioral disturbance, psychotic disturbance, mood disturbance, and anxiety; G93.41 Metabolic encephalopathy; L03.115 Cellulitis of right lower limb; L03.116 Cellulitis of left lower limb; E87.1 Hypo-osmolality and hyponatremia; G93.1 Anoxic brain damage, not elsewhere classified; I13.0 Hypertensive heart and chronic kidney disease with heart failure and stage 1 through stage 4 chronic kidney disease, or unspecified chronic kidney disease; R65.20 Severe sepsis without septic shock; E11.22 Type 2 diabetes mellitus with diabetic chronic kidney disease; E66.01 Morbid (severe) obesity due to excess calories; E83.39 Other disorders of phosphorus metabolism; E87.6 Hypokalemia; E88.09 Other disorders of plasma-protein metabolism, not elsewhere classified; I25.10 Atherosclerotic heart disease of native coronary artery without angina pectoris; I08.0 Rheumatic disorders of both mitral and aortic valves; I48.0 Paroxysmal atrial fibrillation; I50.9 Heart failure, unspecified; I70.0 Atherosclerosis of aorta; J44.9 Chronic obstructive pulmonary disease, unspecified; K40.20 Bilateral inguinal hernia, without obstruction or gangrene, not specified as recurrent; K57.30 Diverticulosis of large intestine without perforation or abscess without bleeding; K74.60 Unspecified cirrhosis of liver; M19.011 Primary osteoarthritis, right shoulder; M43.16 Spondylolisthesis, lumbar region; N18.3 Chronic kidney disease, stage 3 (moderate); Z51.5 Encounter for palliative care; Z66 Do not resuscitate; Z81.8 Family history of other mental and behavioral disorders; Z90.49 Acquired absence of other specified parts of digestive tract; Z68.36 Body mass index [BMI] 36.0-36.9, adult
CPT/HCPCS: 31500; 36415; 36556; 36600; 70450; 71045; 71250; 74176; 80053; 80202; 80320; 81001; 82140; 82570; 82607; 82746; 82805; 82962; 83605; 83735; 83880; 83935; 84100; 84156; 84300; 84443; 84484; 85007; 85025; 85027; 85610; 85730; 87040; 87070; 87077; 87081; 87086; 87186; 87205; 93005; 93306; 93930; 93970; 94002; 94003; 95819; 96361; 96372; 96374; 96375; 99291; C9113; J0330; J0696; J1815; J1956; J2250; J2270; J2543; J2704; J3490; J7060; P9047